=== PATIENT | male | born 1965 | race Caucasian/White ===

== ENCOUNTER 2019-08-21 13:52 | Inpatient (IN) | payer BC, SELFPAY ==
[~2019-08-21] VITALS: Ht 170.2 cm; Wt 86.2 kg
--- NOTE | 2019-08-21 14:24 | NUR ---
PT SITTING UP IN BED, AAOX4 WITH C/O GENERALIZED WEAKNESS, DIARRHEA, COUGH, LOSS OF APPETITE AND DARKENED URINE X 1 WEEK S/P 'WORKING OUT IN THE HEAT'. PT PLACED ON MONITOR. PT PLACED ON 2L O2 NC DUE TO LOW O2 SAT AND IS IN THE LOW 90'S, NO DISTRESS OR SOB NOTED AT THIS TIME. PT DENIES ANY FEVER OR N/V/C AT THIS TIME.
[2019-08-21 15:23] LABS: RED CELL DISTRIBUTION WIDTH 12.9 % (11.5-14.5)
[2019-08-21 15:33] LABS: PLATELET COUNT 113 x10^3mcL (130-400)
[2019-08-21 15:37] LABS: CALCIUM 8.1 mg/dL (8.5-10.1); CARBON DIOXIDE 27.2 mmol/L (21-32); CHLORIDE SERUM 97 mmol/L (98-107); GFR1 > 60 mL/min; GLUCOSE SERUM 299 mg/dL (74-106); POTASSIUM SERUM 3.9 mmol/L (3.5-5.1); SODIUM SERUM 132 mmol/L (136-145)
[2019-08-21 15:42] LABS: ALKALINE PHOSPHATASE 66 U/L (46-116); ALT/SGPT 21 U/L (16-63); AST/SGOT 38 U/L (15-37); BILIRUBIN TOTAL 0.72 mg/dL (0.20-1.00); LACTIC DEHYDROGENASE (LDH) 392 U/L (100-190)
[2019-08-21 15:49] LABS: ALBUMIN 2.9 g/dL (3.4-5.0)
[2019-08-21 16:11] LABS: MONOCYTE 7 % (0-7); SEGMENTED NEUTROPHILS 64 % (37-75)
[2019-08-21 16:13] LABS: rbc morphology (normal/abnorm) NORMAL (NORMAL)
[2019-08-21 16:14] LABS: PLATELET MORPHOLOGY PLATELETS DECREASED
[2019-08-21 16:18] LABS: microscopic required? YES; urine erythrocyte NEGATIVE (NEGATIVE)
--- NOTE | 2019-08-21 16:19 | NUR ---
PT STARTED TO FELL NAUSEATED AND DRY HEAVING SO DR OLMOS INFORMED. ZOFRAN GIVEN AND PT STATES HE FEELS BETTER.
--- NOTE | 2019-08-21 17:26 | NUR ---
PT BROUGHT DINNER TRAY AND SET UP FOR HIM. ALL NEEDS MET. WILL CONT TO MONITOR.
[2019-08-21 17:38] LABS: MAGNESIUM 2.4 mg/dL (1.8-2.4); PHOSPHOROUS 3.1 mg/dL (2.5-4.9)
[2019-08-21 17:39] LABS: CHOLESTEROL/HDL RATIO 4.9
--- NOTE | 2019-08-21 18:50 | NUR ---
PT WATCHING TV AND ATE DINNER. NAD.
--- NOTE | 2019-08-21 19:12 | NUR ---
GAVE REPORT TO DORIS
--- NOTE | 2019-08-21 20:00 | NUR ---
PATIENT AMBULATED TO THE BATHROOM. NO COMPLAINT AT THIS TIME.
[2019-08-21 21:19] LABS: AMPHETAMINE QUAL UR NONE DETECTED (See below)
--- NOTE | 2019-08-22 00:10 | NUR ---
MD NOTIFIED , PATIENT 'S SATURATION IS LOW ON 4 LITERS. . OXYEN INCREASED TO 6 LITERS VIA N/C PER DR PINEDA ( RESIDENT) VERBAL ORDER. SATURATION WENT UP TO 95 % 0N THE 6 LITERS.
--- NOTE | 2019-08-22 01:13 | NUR ---
PT REPORT CALLED TO PERCY CAMPOS TO ASSUME PT CARE.
[2019-08-22 02:01] VITALS: BP 140/89
--- NOTE | 2019-08-22 02:21 | NUR ---
RECEIVED PT FROM ER VIA [facility]RA ACCOMPANIED NURSE AND EMT, PT SEEN, ALERT AND ORIENTED, DENIES HEADACHE OR DIZZINESS, BREATHING EVEN AND UNLABORED, LUNG SOUNDS DIMINISHED BLL, MILD SOB ON EXERTION, NO RESP DISTRESS NOTED, ON O2 2L VIA NC, NO RESP DISTRESS NOTED, ON TELE#27 NSR, DENIES CHEST PAIN, SL TO RFA, PULSES PALPABLE, NO EDEMA NOTED, AMBULATORY WITH STEADY GAIT, ABD SOFT AND FLAT WITH ACTIVE BS, NO BM AT THIS TIME, DENIES ABD PAIN, VOIDING FREELY, NO DISTRESS NOTED, WILL KEEP TO MONITOR.
--- NOTE | 2019-08-22 06:20 | NUR ---
PT ASLEEP BUT EASILY AROUSABLE, SLEPT MOST OF NIGHT, BREATHING EVEN AND UNLABORED ON O2 2L VIA NC, NO RESP DISTRESS OR SOB NOTED, NO DISTRESS NOTED, WILL KEEP TO MONITOR.
--- NOTE | 2019-08-22 07:15 | NUR ---
RECEIVED FROM MEDICAL INSTRUCTOR NURSE, AOX4, TELE 27, NSR, PALPABLE PULSES, NO EDEMA, DIMINISHED BLF, +BS, VOIDS WITH NO DYSURIA, AMBULATORY, NO WEAKNESS, SKIN DRY AND INTACT, NO PAIN AT THIS TIME, IV INTACT TO RFA, NO REDNESS OR SWELLING, CALL LIGHT WITHIN REACH, BED AT LOWEST POSITION, SIDE RAILS UP.
[2019-08-22 07:57] VITALS: BP 103/71
--- NOTE | 2019-08-22 08:07 | NUR ---
MEDICATIONS GIVEN PER EMAR.
[2019-08-22 09:05] LABS: C REACTIVE PROTEIN 4.4 mg/dL (<=0.9); CALCIUM 8.3 mg/dL (8.5-10.1); CARBON DIOXIDE 30.1 mmol/L (21-32); CHLORIDE SERUM 99 mmol/L (98-107); CREATININE SERUM 0.9 mg/dL (0.7-1.3); GFR1 > 60 mL/min; GLUCOSE SERUM 219 mg/dL (74-106); MAGNESIUM 2.7 mg/dL (1.8-2.4); PHOSPHOROUS 3.5 mg/dL (2.5-4.9); POTASSIUM SERUM 4.8 mmol/L (3.5-5.1); SODIUM SERUM 137 mmol/L (136-145)
--- NOTE | 2019-08-22 09:22 | NUR ---
AZITHROMAX IVPB INFUSING WELL AT 250CC/HR. NO REDNESS OR SWELLING
[2019-08-22 10:44] LABS: PLATELET COUNT 126 x10^3mcL (130-400); RED CELL DISTRIBUTION WIDTH 13.1 % (11.5-14.5)
--- NOTE | 2019-08-22 10:46 | NUR ---
HEPARIN SQ GIVEN
[2019-08-22 11:36] VITALS: BP 100/60
--- NOTE | 2019-08-22 12:39 | NUR ---
CALLED RESIDENT'S PHONE REGARDING CA AND MG RESULTS. PER RESIDENT, IT'S OK . THAT'S FINE, KEEP IT IT IS.
[2019-08-22 14:19] LABS: MONOCYTE 15 % (0-7); SEGMENTED NEUTROPHILS 45 % (37-75); rbc morphology (normal/abnorm) NORMAL (NORMAL)
[2019-08-22 14:20] LABS: ATYPICAL LYMPH 2 %; PLATELET MORPHOLOGY LARGE PLATELET SEEN
[2019-08-22 15:44] VITALS: BP 104/70
--- NOTE | 2019-08-22 16:46 | NUR ---
ACCUCHECK DONE WITH CBG 275. REGULAR INSULIN 9 UNITS SQ GIVEN
--- NOTE | 2019-08-22 16:48 | NUR ---
SEEN AOX4, NOT IN DISTRESS, NO SOB, NO SUBJECTIVE COMPLAINTS. NEEDS MET
--- NOTE | 2019-08-22 19:41 | NUR ---
PT SEEN, ALERT AND ORIENTED, DENIES HEADACHE OR DIZZINESS, BREATHING EVEN AND UNLABORED, LUNG SOUNDS DIMINISHED BLL, MILD SOB ON EXERTION, NO RESP DISTRESS NOTED, ON O2 2L VIA NC, NO RESP DISTRESS NOTED, ON TELE#27 NSR, DENIES CHEST PAIN, SL TO RFA, PULSES PALPABLE, NO EDEMA NOTED, AMBULATORY WITH STEADY GAIT, ABD SOFT AND FLAT WITH ACTIVE BS, NO BM AT THIS TIME, DIARRHEA THROUGHOUT THE DAY, DENIES ABD PAIN, VOIDING FREELY, NO DISTRESS NOTED, WILL KEEP TO MONITOR.
[2019-08-22 20:19] VITALS: BP 108/70
[2019-08-23 05:27] VITALS: BP 100/64
[2019-08-23 06:00] VITALS: BP 115/63
--- NOTE | 2019-08-23 06:16 | NUR ---
PT THIS MORNING SPO2 ONLY SATTING AT 83-86% ON O2 2L, INCREASED TO 5L PT STILL SATTING AROUND 85%, REPLACED PT TO OXYMIXER 8L AND SATTING WENT UP TO 86-87% THEN INCREASED TO 12L BUT STILL WITH NO IMPROVEMENT, PLACED PT ON NON-REBREATHER 15L AND SPO2 CAN MAINTAIN ABOVE 90%, ENCOURAGE PT TO PRONE HIMSELF BUT PT UNABLE TO TOLERATE ON PRONE POSITION AND NOTED PT STARTED TO COUGH A LOT WITH SHALLOW BREATHING, PT BACK TO SUPINE POSITION, DR OCHOA AND DR PINEDA MADE AWARE OF PT WITH CONDITION CHANGE, NO CONTINUE PULSE OX WIRE AVAILABE AT THIS TIME, RT PROTOCOL ORDERED, PT STATED THAT HE IS FINE AT THIS TIME.
--- NOTE | 2019-08-23 07:00 | NUR ---
RECEIVED PT FROM BOBBIN DISKER RN. AOX4 ABLE TO MAKE NEEDS KNOWN, DENIES VILLASENOR/DIZZINESS. TELE 27 SR, ECHO PENDING. DIMINISHED LUNG SOUNDS, ON 15L NRB MASK O2 SAT 92%, ENCOURAGE PT TO SELF-PRONE, DENIES SOB, C/O COUGH EARLIER BUT NONE AT THE MOMENT, RESP E/U. ABDOMEN SOFT/ROUND, NONTENDER, NONDISTENDED, DENIES N/V, C/O PREVIOUS BM LOOSE. AMBULATES PER BRP. ENCOURAGED TO USE URINAL AT BEDSIDE. IV TO RFA PATENT, INFUSING ABX, CDI. CALL LIGHT IN REACH, WILL CONTINUE TO MONITOR.
[2019-08-23 07:48] VITALS: BP 108/70
[2019-08-23 07:59] LABS: BASOPHIL % 0.2 % (0-2); PLATELET COUNT 169 x10^3mcL (130-400); RED CELL DISTRIBUTION WIDTH 12.8 % (11.5-14.5)
--- NOTE | 2019-08-23 08:00 | NUR ---
PT FOUND SITTING UP IN BED WITH NRB MASK OFF, PT STATED HE TOOK IT OFF TO EAT. REMINDED PT THAT HE NEEDS TO KEEP MASK ON, DENIES SOB OR TROUBLE BREATHING, PT NOW RESTING IN BED, SUPINE, BACK ON 15L NRB MASK. WILL CONTINUE TO MONITOR.
--- NOTE | 2019-08-23 08:07 | NUR ---
ECHOCARDIOGRAM PENDING-COVID RESULTS PENDING
[2019-08-23 08:18] LABS: C REACTIVE PROTEIN 2.4 mg/dL (<=0.9); CALCIUM 8.3 mg/dL (8.5-10.1); CARBON DIOXIDE 28.1 mmol/L (21-32); CHLORIDE SERUM 102 mmol/L (98-107); CREATININE SERUM 0.8 mg/dL (0.7-1.3); GFR1 > 60 mL/min; GLUCOSE SERUM 88 mg/dL (74-106); MAGNESIUM 2.4 mg/dL (1.8-2.4); PHOSPHOROUS 3.5 mg/dL (2.5-4.9); POTASSIUM SERUM 3.6 mmol/L (3.5-5.1); SODIUM SERUM 140 mmol/L (136-145)
[2019-08-23 11:26] VITALS: BP 103/67
[2019-08-23 15:53] VITALS: BP 106/68
--- NOTE | 2019-08-23 19:34 | NUR ---
PT SEEN, ALERT AND ORIENTED, DENIES HEADACHE OR DIZZINESS, BREATHING EVEN AND UNLABORED, LUNG SOUNDS DIMINISHED, SOB ON EXERTION, ON AND OFF COUGH, ON NON REBREATHER 15L, ON AND OFF COUGH, NO RESP DISTRESS NOTED, ON TELE#27 NSR, DENIES CHEST PAIN, SL TO LFA, PULSES PALPABLE, NO EDEMA NOTED, AMBULATORY WITH STEADY GAIT, ABD SOFT AND FLAT WITH ACTIVE BS, NO BM AT THIS TIME, DIARRHEA THROUGHOUT THE DAY, DENIES ABD PAIN, VOIDING FREELY, NO DISTRESS NOTED, WILL KEEP TO MONITOR.
[2019-08-23 20:29] VITALS: BP 102/66
[2019-08-24 05:14] VITALS: BP 94/58
--- NOTE | 2019-08-24 05:44 | NUR ---
PT AWAKE AND RESTING IN BED, SLEPT ON AND OFF WHOLE NIGHT, ON AND OFF COUGH, SOB ON EXERTION, PT UNABLE TO TOLERATE ON PRONE POSITION, ON NON-REBREATHER 15L, DE-SATS AT TIMES, MORNING BLOOD SUGAR:117 MG/DL WITH NO RISS, NO DISTRESS NOTED, WILL KEEP TO MONITOR.
--- NOTE | 2019-08-24 06:39 | NUR ---
DR SMITH MADE AWARE OF PT'S ABG RESULT THIS MORNING, PT'S PO2:49 WITH NON-REBREATHER 15L.
[2019-08-24 07:19] LABS: BASOPHIL % 0.2 % (0-2); PLATELET COUNT 190 x10^3mcL (130-400); RED CELL DISTRIBUTION WIDTH 12.8 % (11.5-14.5)
[2019-08-24 07:48] LABS: C REACTIVE PROTEIN 3.6 mg/dL (<=0.9); CARBON DIOXIDE 27.7 mmol/L (21-32); CHLORIDE SERUM 103 mmol/L (98-107); CREATININE SERUM 0.7 mg/dL (0.7-1.3); GFR1 > 60 mL/min; GLUCOSE SERUM 94 mg/dL (74-106); MAGNESIUM 2.5 mg/dL (1.8-2.4); PHOSPHOROUS 3.3 mg/dL (2.5-4.9); POTASSIUM SERUM 3.6 mmol/L (3.5-5.1); SODIUM SERUM 139 mmol/L (136-145)
--- NOTE | 2019-08-24 07:50 | NUR ---
RECEIVED PT IN A/A/OX4 DENIES VILLASENOR. RESP EVEN AND SLIGHTLY LABORED BREATHING WITH DIMINISHED BS BILAT. ON NRB AT 15L/MIN VIA NC WITH RT PROTOCOL. PT NOTED WITH LOW O2 SATS. WILL CONTACT RT. NSR/ST ON TELE. NO EDEMA NOTED WITH IV SL TO LFA. ABD SOFT, NONTENDER WITH ACTIVE BS X4. DENIES ANY N/V AT THIS TIME. DROPLET PRECAUTIONS MAINTAINED. PENDING CVD-19 RESULT.
[2019-08-24 08:43] LABS: CALCIUM 8.1 mg/dL (8.5-10.1)
--- NOTE | 2019-08-24 08:45 | NUR ---
SPOKE WITH RT TO EVAL PT FOR POSS ADDITION OF OXYMIZER WITH NRBH ON TOP TO HELP WITH LOW SATURATIONS. PT REMINDED TO KEEP PRONING TOLERATED AND TO TAKE SLOW DEEP BREATHS. CALL LIGHT IN REACH NEEDS ATTENDED TO.
[2019-08-24 09:27] VITALS: BP 111/70
[2019-08-24 13:05] VITALS: BP 98/61
--- NOTE | 2019-08-24 14:00 | NUR ---
SPOKE WITH DR. NARANJO REGARDING PT'S CONDITION. PER CONCERN ABOUT OXYGENATION. PER MD HAD PT LAY PRONE. CONT TO MONITOR.
[2019-08-24 17:21] VITALS: BP 101/69
--- NOTE | 2019-08-24 18:48 | NUR ---
PT RESTING AT THIS TIME. REMAINS ON O2 VIA NRB AT 15L AND OXYMIZER AT 12L, PT'S O2 SAT HAS BEEN FLUCTUATING FROM 88-92%. ENCOURAGE PRONING TOLERATED. PT DENIES ANY PAIN/DISCOMFORT AT THIS TIME. CALL LIGHT IN REACH NEEDS ATTENDED TO.
--- NOTE | 2019-08-24 20:00 | NUR ---
PT A/A/O X3. DENIES DIZZINESS AND HEADACHE. BREATH SOUNDS DIMINISHED. BREATHING EVEN AND UNLABORED ON 15L O2 NON REBREATHER MASK AND 14L O2 OXYMIZER, SPO2 90%. DENIES CHEST PAIN AND PRESSURE. BOWEL SOUNDS ACTIVE. NO C/O N/V AND ABD PAIN. IV SALINE LOCK INTACT ON THE LEFT FOREARM. MADE PT COMFORTABLE. PLACED CALL LIGHT WITH IN REACH. WILL CONTINUE TO MONITOR.
[2019-08-24 21:25] VITALS: BP 105/66
--- NOTE | 2019-08-25 06:38 | NUR ---
PT QUIET AND RESTING. OXYMIZER INCREASED FROM 14L TO 15L. NON REBREATHER MASK 15L, SPO2 89%. PT DENIES SOB AND RESPIRATORY DISTRESS. INSTRUCTED THE PT TO LAY ON HIS SIDE OR ON HIS STOMACH. PT VERBALIZED UNDERSTADING. MADE PT COMFORTABLE. WILL ENDORSE TO THE AM NURSE ACCORDINGLY.
[2019-08-25 06:39] VITALS: BP 112/69
--- NOTE | 2019-08-25 06:43 | NUR ---
PT SPO2 90% ON 15L OZYMIZER AND 15L NON REBREATHER MASK.
--- NOTE | 2019-08-25 06:51 | NUR ---
PT SPO2 WOULD GO DOWN TO 85% AND SOMETIMES COME BACK TO 91% ON OXYMIZER 15L AND 15L NON REBREATHER MASK. DR. SMITH AWARE. WILL ENDORSE TO THE AM NURSE ACCORDINGLY.
--- NOTE | 2019-08-25 07:40 | NUR ---
RECEIVED PT IN BED A/A/OX4 DENIES VILLASENOR. RESP EVEN AND UNLABORED WITH DIMINISHED BS BILAT. ON O2 VIA NRB AT 15L AND OXYMIZER INCREASED TO 15L OVERNIGHT. PT ENCOURAGES PRONING AND DOES FOLLOW DIRRECTIONS. O2 SAT 88-92%. WORSENING WHILE EATING OR ACTIVITY. NO EDEMA NOTED WITH IV SL TO LFA PATENT. VOIDING FREELY USING URINAL. MAINTAINED DROPLET PRECAUTIONS. PUI/CVD WITH RESULTS PENDING. CALL LIGHT IN REACH NEEDS ATTENDED TO.
[2019-08-25 08:20] VITALS: BP 106/74
[2019-08-25 11:11] LABS: CALCIUM 8.5 mg/dL (8.5-10.1); CARBON DIOXIDE 28.1 mmol/L (21-32); CHLORIDE SERUM 101 mmol/L (98-107); CREATININE SERUM 0.9 mg/dL (0.7-1.3); GFR1 > 60 mL/min; GLUCOSE SERUM 260 mg/dL (74-106); MAGNESIUM 2.5 mg/dL (1.8-2.4); PHOSPHOROUS 2.6 mg/dL (2.5-4.9); POTASSIUM SERUM 4.4 mmol/L (3.5-5.1); SODIUM SERUM 136 mmol/L (136-145)
--- NOTE | 2019-08-25 11:15 | NUR ---
CALLED PT'S FAMILY REQUESTED BY PT AND UPDATED ON CONDITION AND POC. CONT TO MONITOR.
[2019-08-25 11:35] LABS: PLATELET COUNT 234 x10^3mcL (130-400); RED CELL DISTRIBUTION WIDTH 12.8 % (11.5-14.5)
[2019-08-25 11:39] LABS: BASOPHIL % 0 % (0-2)
--- NOTE | 2019-08-25 12:00 | NUR ---
CALLED TO LAB TO F/U ON CVD TEST PENDING LAB FOLLOWED UP WITH [facility] AND SPECIMEN COULD NOT BE FOUND OR TRACKED. LAB REQUESTED NEW SWAB. ORDER OBTAINED AND PT ALLOWED TO BE RESWAB. SPECIMEN SENT TO LAB BEFORE 1200 TO ENSURE MANUFACTURING SR ENGINEER TODAY. PT MADE AWARE OF SITUATION, AND DR. NARANJO, AND DR. LOYOLA AWARE OF SITUATION. WILL CONT TO MONITOR.
[2019-08-25 13:00] VITALS: BP 114/71
--- NOTE | 2019-08-25 13:38 | NUR ---
Initial Nutrition Assessment: [address] YULIANA PETERSON 54M HR Nursing trigger: N/V/D > 3 days, Poor PO intake > 3 days Dx: VILLASENOR, cough, body ache, diarrhea, poor appetite, bilateral PNA, hypoxia, r/o COVID-19 PMHx: DM non-compliant PSHx: none noted Labs: (08/23) mg 2.5H, (08/20) AST 38H Meds: Tylenol, Ventolin, Zithromax, Cepacol lozenge, Rocephin, decadron, D50%, D5%, Colace, Hunters, Lantus, Humulin, Zofran Diet: [facility] diet PO intake since admission: 30-100% x 9 meals with average PO intake of 74%. Ht: 170.18cm/67in Wt: 86.183kg/190lbs BMI: 29.8 Bed scale: unknown IBW: 67.27kg/148lbs %IBW: 128.11% ABW: 72kg UBW: 190lbs per pt Age: 54 Food Allergies: NKFA per pt Edema: none noted Last BM: 08/21 Skin: skin intact Trevon: 20 Per H and P (08/20), Patient is 54-year-old male who came to ED by himself from work. Patient lives in [place] but works in [place]. He has a history of DM, but he is not compliant with meds. He comes in for shortness of breath associated with generalized weakness, cough and loose stools. His symptoms started 3 days ago and have progressively gotten worse. He was at work when he felt weak and decided to come to the ER. His cough is dry. Today he had 1 episode of loose stools in the morning. 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 He works outdoors from 11 am till 6-7 pm. He denies any fever, nausea, vomit, constipation or recent travel. Pt was admitted with dx: Acute respiratory failure and viral PNA d/ possible COVID vs. CAP, Possible Sepsis, DMOOC, Hypocalcemia, DVT RD Note (08/24) Pt was in isolation d/t possible COVID. RDN was able to contact pt with phone. Per pt, he had good appetite, and pt denied GI distress, chewing/swallowing difficulty, and recent wt changes. Pt reported taking MVI and protein powder at home, and he used to work out a lot. Per progress note (08/24) pt on day 4 of Decadron, azithromycin and Rocephin, COVID result still pending. Pt had average PO intake of 74% since admission. Diet provided approximately 1266kcal and 76g protein meeting 59% of estimated kcal needs and 88% of estimated protein needs. Problem with: N/V/D/C: No, only coughing per pt Problems with: Chewing: Swallowing: none per pt Current appetite: good per pt Recent wt change: no per pt %wt change: no per pt Height: 5'7" Vitamin/Supplement use: MVI and protein powder Special diet at home: no per pt Physical activity: pt stated that he used to workout Nutrition education given (specify specific nutrition education and handout given): Encouraged pt to avoid food with high added sugar and substitute refine grain with whole grain food. Also advised pt to count his carbohydrate serving and maintain a consistent level of carbohydrate intake. Additionally, recommended pt to continue with exercise to aid blood sugar control. Written education "Type 2 Diabetes Nutrition Therapy" and "Diabetes Label Reading Tips" were provided to pt via pt's RN. Food-drug interactions? Education given? n/a Estimated Nutritional Needs Based on adjusted ideal body weight (72 kg) Energy: 9901-6486 kcal/day (30-35 kcal/kg for sepsis) Protein: 86-108 g/day (1.2-1.5 g/kg for sepsis) Fluid: 0303-0814 mL/day (1 mL/kcal) Nutrition Diagnosis: 1. Inadequate energy intake r/t suboptimal PO intake a/e/b pt PO intake meeting 59% of estimated kcal needs. 2. Impaired nutrition utilization r/t endocrine dysfunction a/e/b pt admitted with dx of DMOOC and PMHx of DM. Intervention 1. Recommend continue CCHO diet 2. Recommend glucerna BID to aid PO intake. It will provide additional 440kcal and 20g protein. Monitor/Evaluate Goal: PO intake at least 75% of estimated needs Monitor: PO intake, Labs, GI function, ONS intake, Body weight F/U in 3-5 days as moderate risk 08/27-
--- NOTE | 2019-08-25 13:38 | NUR ---
1. Recommend continue [facility] diet 2. Recommend glucerna BID to aid PO intake. It will provide additional 440kcal and 20g protein.
--- NOTE | 2019-08-25 15:00 | NUR ---
PT RESTING AT THIS TIME. DENIES ANY DISCOMFORT. CALL LIGHT IN REACH NEEDS ATTENDED TO.
[2019-08-25 16:56] VITALS: BP 93/57
--- NOTE | 2019-08-25 17:54 | NUR ---
PT RESTING AT THIS TIME. DENIES ANY DISCOMFORT. REMAINS ON OXYMIZER AT 15L AND NRB AT 15L SATING 88-92%. PT DESATS WHILE EATING AND FROM NRB NOT FITTING PROPERLY OVER OXYMIZER. PT PRONES FREQUENTLY AND TURNS ON SIDE. PT HAD LARGE BM TODAY WITH ASSISTANCE TO BSC AND TOLERATED WELL RECOVERED TO 93% IN LESS THAN 5 MIN. CALL LIGHT IN REACH NEEDS ATTENDED TO.
--- NOTE | 2019-08-25 20:00 | NUR ---
PT A/A/O X4. DENIES DIZZINESS AND HEADACHE. BREATH SOUNDS DIMINISHED CHIKI LUNGS. BREATHING EVEN AND UNLABORED ON 15L OXYMIZER AND 15L NON REBREATHER MASK, SPO2 89%. NO C/O RESPIRATORY DISTRESS AND SOB THUS FAR. DENIES CHEST PAIN AND PRESSURE. BOWEL SOUNDS ACTIVE. NO C/O N/V AND ABD PAIN. IV SALINE LOCK NOTED ON THE LEFT FOREARM. MADE PT COMFORTABLE. PLACED CALL LIGHT WITH IN REACH. WILL CONTINUE TO MONITOR.
[2019-08-25 21:28] VITALS: BP 108/73
[2019-08-26 06:01] VITALS: BP 91/59
[2019-08-26 06:02] VITALS: BP 109/68
--- NOTE | 2019-08-26 06:36 | NUR ---
PT QUIET AND RESTING. NO C/O SOB AND RESPIRATORY DISTRESS THUS FAR. SPO2 88%-91%. MADE PT COMFORTABLE. WILL ENDORSE TO THE AM NURSE ACCORDINGLY.
[2019-08-26 07:09] LABS: BASOPHIL % 0.2 % (0-2); PLATELET COUNT 270 x10^3mcL (130-400); RED CELL DISTRIBUTION WIDTH 12.9 % (11.5-14.5)
[2019-08-26 07:51] LABS: CALCIUM 8.5 mg/dL (8.5-10.1); CARBON DIOXIDE 29.1 mmol/L (21-32); CHLORIDE SERUM 103 mmol/L (98-107); CREATININE SERUM 0.9 mg/dL (0.7-1.3); GFR1 > 60 mL/min; GLUCOSE SERUM 74 mg/dL (74-106); MAGNESIUM 2.5 mg/dL (1.8-2.4); PHOSPHOROUS 3.5 mg/dL (2.5-4.9); POTASSIUM SERUM 4.1 mmol/L (3.5-5.1); SODIUM SERUM 139 mmol/L (136-145)
[2019-08-26 08:51] VITALS: BP 106/71
--- NOTE | 2019-08-26 09:00 | NUR ---
RECEIVED PT FROM PM NURSE. PT AWAKE AND RESTING COMFORTABLY IN BED AT THIS TIME. NO FACIAL DISTRESS OR SOB NOTED. PT IS A/OX4. LUNG SOUNDS DIMINISHED BILAT. BREATHING E/U ON BOTH NRB 15L AND OXYMIZER 15L. ENCOURAGED PT TO GET INTO A PRONE POSITION. TELE #27. SR. DENIES CP/PRESSURE. PULSES EVEN AND PALPABLE. NO EDEMA NOTED. ACTIVE BS X4. ABD SOFT AND ROUND. LBM 08/24/19. DENIES N/V/D. VOIDS FREELY USING URINAL BY BEDSIDE. AMBULATORY. SKIN INTACT. DENIES PAIN AT THIS TIME. IV ON LFA. SL. INTACT AND PATENT. FLUSHES WITH NO DIFFICULTY. SAFETY PRECAUTIONS: DROPLET AND CONTACT OBSERVED AT ALL TIMES. BED AT THE LOWEST POSITION. CALL LIGHT WITHIN REACH. WILL CONTINUE TO MONITOR.
[2019-08-26 12:14] VITALS: BP 102/69
--- NOTE | 2019-08-26 12:49 | NUR ---
DR. SMITH MADE AWARE OF THE REMDESIVIR ORDER THAT WAS INPUTTED LAST NIGHT. SHE STATED THAT SHE WILL INFORM HER ATTENDING DOCTOR.
[2019-08-26 16:31] LABS: BILIRUBIN DIRECT 0.16 mg/dL (0.0-0.2); BILIRUBIN TOTAL 0.66 mg/dL (0.20-1.00); TOTAL PROTEIN, SERUM 6.9 g/dL (6.4-8.2)
[2019-08-26 16:39] LABS: ALBUMIN 2.5 g/dL (3.4-5.0)
[2019-08-26 16:54] VITALS: BP 110/74
--- NOTE | 2019-08-26 19:26 | NUR ---
CARE ENDORSED TO PM NURSE FOR CONTINUTIY OF CARE. ALL QUESTIONS/CONCERNS ANSWERED.
--- NOTE | 2019-08-26 19:45 | NUR ---
RECEIVED REPORT FROM KAMI CAMPOS. PT IS AAOX4 AND DENIES VILLASENOR/DIZZINESS. PT ON TELE #27, ST WITH HR 103. PT DENIES CP/PRESSURE. PT PULSES PALPABLE AND CAP REFILL <3 SEC. PT LUNG SOUNDS DIMINISHED ON 15L NRB AND 15L OXYMIZER. PT ON CONTINUOUS PULSE OX. PT SAO2 RANGING FROM 88-90%. PT NONPRODUCTIVE COUGH NOTED. PT C/O SOB UPON EXERTION. PT ABD SOFT/ROUND WITH ACTIVE BS X4. PT DENIES N/V/C/D. PT VOIDS FREELY VIA URINAL. PT IS AMBULATORY. PT SKIN INTACT. PT DENIES S/S OF PAIN OR DISCOMFORT AT THIS TIME. PT IV TO LFA PATENT/INTACT. NO S/S OF REDNESS, PAIN, OR SWELLING NOTED. ALL NEEDS MET AT THIS TIME. CALL LIGHT WITHIN REACH. BED IN LOWEST POSITION. SIDE RAILS X2 UP. DROPLET+CONTACT PRECAUTIONS MAINTAINED. WILL CONTINUE TO MONITOR.
--- NOTE | 2019-08-26 19:50 | NUR ---
PT SAO2 DECREASED TO THE 78-80%. MADE RT AWARE FOR A BREATHING TREATMENT. PER RT, ONCE REPORT IS GIVEN, RT WILL BE AT BEDSIDE. WENT IN TO SEE PT. PER PT, HE WAS TRYING TO REPOSITION THE BED BY REACHING THE BED CONTROLS AT THE FOOT OF HIS BED. GAVE AND ORIENTED PT TO BED CONTROL PAD THAT WAS UNDERNEATH THE SIDE RAIL. EDUCATED PT THAT HE NEEDS TO MAKE SURE THAT THE NONREBREATHER MASK NEED TO STAY ON TOP OF HIS OXYMIZER. PT COUGH NOTED AT THIS TIME. ALL NEEDS MET. WILL CONTINUE TO MONITOR.
--- NOTE | 2019-08-26 20:00 | NUR ---
RT AT BEDSIDE TO GIVE BREATHING TX AT THIS TIME.
[2019-08-26 21:12] VITALS: BP 108/61
--- NOTE | 2019-08-26 22:25 | NUR ---
REGARDING REMDESIVIR IV, DR. NARANJO WHO ROUNDED FOR DR. PATEL THIS MORNING APPROVED THE MEDICATION. HOWEVER, SPOKE WITH PHARMACY AND PER PHARMACY, THEY CANNOT VERIFY THE MEDICATION UNLESS DR. PATEL OR DR. DUPREE ARE THE ONES WHO APPROVE THE MEDICATION. WILL MAKE CHARGE NURSE AWARE.
--- NOTE | 2019-08-27 06:00 | NUR ---
PT RESTED COMFORTABLY IN INTERVALS DURING THE NIGHT. PT IS NONCOMPLIANT WITH WEARING BOTH THE NRB AND OXYMIZER AT TIMES. EDUCATED PT THAT HE NEEDS TO WEAR BOTH EVEN IT IS UNCOMFORTABLE. PT VERBALLY SAID HE UNDERSTOOD. COMFORT AND SAFETY MEASURES MAINTAINED. ALL QUESTIONS AND CONCERNS ADDRESSED. CALL LIGHT WITHIN REACH. BED IN LOWEST POSITION. SIDE RAILS X2 UP. WILL ENDORSE TO DAY SHIFT NURSE.
[2019-08-27 06:21] VITALS: BP 107/69
--- NOTE | 2019-08-27 07:17 | NUR ---
ENDORSED CARE TO KAMI RN. ALL QUESTIONS AND CONCERNS ANSWERED.
--- NOTE | 2019-08-27 07:45 | NUR ---
RECEIVED PT FROM PM ANDRES OLIVAREZ. PT IS AWAKE AND RESTING COMFORTABLY IN BED AT THIS TIME. NO FACIAL DISTRESS OR SOB NOTED. PT IS A/OX4. DENIES VILLASENOR OR DIZZINESS. LUNG SOUNDS DIMINISHED. BREATHING E/U ON 15L NRB AND 15L OXYMIZER. O2SAT RANGING FROM 88-95% TELE #27. NSR. PULSES EVEN AND PALPABLE. NO EDEMA NOTED. ACTIVE BSX4. ABD. SOFT AND ROUND. DENIES N/V/D. LBM 08/26/19. VOIDS FREELY IN URINAL BY BEDSIDE. AMBULATORY. SKIN INTACT. NO C/O PAIN AT THIS TIME. STILL C/O SOB UPON EXERTION. IV ON LFA. SL. INTACT AND PATENT. FLUSHES WITH NO DIFFICULTY. DROPLET+CONTACT PRECAUTIONS MAINTAINED. BED AT LOWEST POSITION. CALL LIGHT WITHIN REACH. WILL CONTINUE TO MONITOR.
[2019-08-27 09:51] VITALS: BP 108/75
[2019-08-27 17:38] VITALS: BP 107/79
--- NOTE | 2019-08-27 19:10 | NUR ---
PT RECEIVED FROM AM NURSE. PT A/O X4, ABLE TO MAKE NEEDS KNOWN. TELE #27, DENIES ANY CP/PRESSURE. PULSES PALPABLE, NO EDEMA PRESENT. BREATHING IS EVEN AND UNLABORED ON 15L NRB AND 15L OXYMIZER, PT DENIES ANY SOB, NO RESP DISTRESS NOTED. ABD SOFT AND NONDISTENDED, DENIES ANY N/V. VOIDS FREELY, URINAL AT BEDSIDE. AMBULATORY W/ STEADY GAIT. SKIN IS WARM AND DRY, INTACT. PT DENIES HAVING ANY PAIN AT THIS TIME. IV TO LFA, INTACT. DOUBLE LUMEN LOLA PICC LINE IN PLACE, PORTS PATENT AND INTACT, SITES WNL. PT IS COVID+, W/ DROPLET AND CONTACT PRECAUTIONS IN PLACE. NO ACUTE DISTRESS NOTED. BED IN LOWEST SETTING, SIDE RAILS UP X2, CALL LIGHT WITHIN REACH. WILL CONT TO MONITOR.
--- NOTE | 2019-08-27 19:15 | NUR ---
CARE ENDORSED TO PM NURSE FOR CONTINUITY OF CARE. ALL QUESTIONS/CONCERNS ANSWERED.
[2019-08-27 21:43] VITALS: BP 98/61
--- NOTE | 2019-08-28 02:07 | NUR ---
PT C/O SORE THROAT, PRN CEPACOL GIVEN PER EMAR. NO ACUTE DISTRESS NOTED. WILL CONT TO MONITOR.
[2019-08-28 06:08] VITALS: BP 103/62
--- NOTE | 2019-08-28 06:26 | NUR ---
PT SLEPT WELL THROUGHOUT THE EVENING. BREATHING IS EVEN AND UNLABORED ON 15L NRB AND 15L OXYMIZER, CONT PULSE OX-98%, NO RESP DISTRESS OBSERVED. PT DENIES HAVING ANY PAIN AT THIS TIME. IV TO LFA INTACT. LOLA PICC LINE IN PLACE, PORTS PATENT AND INTACT. NO ACUTE CHANGES ENCOUNTERED DURING SHIFT. ALL NEEDS MET AND ANTICIPATED. CALL LIGHT WITHIN REACH. WILL ENDORSE CARE TO AM NURSE.
--- NOTE | 2019-08-28 07:00 | NUR ---
RECEIVED REPORT FRO NIGHT RN Pt DENIES ANY SOB AT THIS TIME REMAINS ON 15L NRM AND 15L OXYMIZER LUNGS DIMINSHED BILAT. ON TELE 27 DENIES ANY CHEST PAIN OR PRESSURE. IV ON LFA PATENT AND INTACT NO REDNESS OR EDEMA. ALL NEEDS ATTENDED TO. SAFETY PRECAUTIONS IN PLACE. WILL CONTINUE TO MONITOR.
[2019-08-28 08:00] VITALS: BP 105/71
[2019-08-28 08:24] LABS: BASOPHIL % 0.3 % (0-2); PLATELET COUNT 277 x10^3mcL (130-400); RED CELL DISTRIBUTION WIDTH 13.1 % (11.5-14.5)
[2019-08-28 08:37] LABS: CALCIUM 8.6 mg/dL (8.5-10.1); CARBON DIOXIDE 30.6 mmol/L (21-32); CHLORIDE SERUM 102 mmol/L (98-107); CREATININE SERUM 0.8 mg/dL (0.7-1.3); GFR1 > 60 mL/min; GLUCOSE SERUM 82 mg/dL (74-106); MAGNESIUM 2.3 mg/dL (1.8-2.4); PHOSPHOROUS 3.4 mg/dL (2.5-4.9); POTASSIUM SERUM 3.8 mmol/L (3.5-5.1); SODIUM SERUM 139 mmol/L (136-145)
--- NOTE | 2019-08-28 09:30 | NUR ---
Elvis rounding at bedside updating Pt on POC
--- NOTE | 2019-08-28 11:30 | NUR ---
UPDATED ON Pt STATUS ALL QUESTIONS AND CONCERNS ADDRESSED . JERI HELPED WITH TRANSLATION
--- NOTE | 2019-08-28 11:45 | NUR ---
Pt LYING IN BED WITH EYES CLOSED CHEST RISE EQUAL AND UNLABORED. Pt REMAINS ON NRB 15L AND OXYMIZER 15L 93% CONTINUOUS PULSE OX. Pt DENIES ANY SOB AT THIS TIME ONLY UPON EXCERTION. INSULIN COVERAGE GIVEN. ALL NEEDS ATTENDED TO AT THIS TIME. BED IN LOWEST POSITION CALL LIGHT WITHIN REACH. WILL CONTINUE TO MONITOR.
[2019-08-28 12:18] LABS: ALBUMIN 2.2 g/dL (3.4-5.0); BILIRUBIN DIRECT 0.16 mg/dL (0.0-0.2); BILIRUBIN TOTAL 0.6 mg/dL (0.20-1.00); TOTAL PROTEIN, SERUM 6.7 g/dL (6.4-8.2)
[2019-08-28 12:33] VITALS: BP 111/68
--- NOTE | 2019-08-28 14:02 | NUR ---
Pt LYING IN BED WITH EYES CLOSED NMO S/S OF ANY RESPIRATORY DISTRESS. ALL NEEDS ATTENDED TO. SAFETY PRECAUTIONS IN PLACE. WILL CONTINUE TO MONITOR.
[2019-08-28 17:07] VITALS: BP 107/72
--- NOTE | 2019-08-28 17:46 | NUR ---
Pt LYING IN BED DENIES ANY SOB HUNG 2ND BAG OF REMDESEVIR Pt TOLERATING NO ADVERSE REACTIONS NOTED. Pt DENIES ANY SOB REMAINS ON 15L NRB AND 15L OXYMIZER. ALL NEEDS ATTENDED TO. WILL CONTINUE TO MONITOR.
--- NOTE | 2019-08-28 18:54 | NUR ---
ADMINISTERED CEPACOL PER Pt REQUEST FOR SOAR THROAT. Pt REMAINED ON 15L OXYMIZER AND 15L NRB MASK CHEST RISE EQUAL AND UNLABORED. Pt SAIDA SY SOB STATED "I AM FEELING BETTER LIL BY LIL" ALL NEEDS ATTENDED TO. IV AND PICC LINE C/D/I NO REDNESS OR EDEMA. TELE MONITOR ON. WILL ENDORSE CARE TO NIGHT RN
--- NOTE | 2019-08-28 19:20 | NUR ---
RECIEVED PT RESTING IN BED WITH NO ACUTE DISTRESS NOTED AT THIS TIME, ASSESSMENT PERFORMED AT THIS TIME, (SEE SHIFT REASSESSMENT), PT IS A/OX4 NO COMPLAINTS OF VILLASENOR OR DIZZINESS AT THIS TIME, PT SPEAKS CLEAR ABLE TO MAKE NEEDS KNOWN, PT DENIES SOB AT THIS TIME, ON 15 L OXYMIZER AND 15L NONREBREATHER. LUNG SOUNDS DIMINISHED, ALL PT NEEDS ATTENDED TO AT THIS TIME, SAFETY PRECAUTIONS IN PLACE WILL CONITNUE TO MONITOR.
[2019-08-28 22:43] VITALS: BP 101/69
--- NOTE | 2019-08-29 00:10 | NUR ---
PT RESTING IN BED WITH NO ACUTE DISTRESS NOTED AT THIS TIME, PT DENIES PAIN OR SOB, RESPIRATIONS EVEN AND UNLABORED, ALL PT NEEDS ATTENDED TO AT THIS TIME, SAFETY PRECAUTIONS IN PLACE WILL CONTINUE TO MONITOR.
[2019-08-29 05:34] VITALS: BP 96/63
--- NOTE | 2019-08-29 06:46 | NUR ---
PT RESTED COMFORTABLY IN BED WITH NO ACUTE DISTRESS NOTED AT THIS TIME, PT DENIED PAIN THROUGHOUT THE NIGHT, PT DESATURATED TWICE DURING THE NIGHT, BUT NRB AT 10L AND GUIDED BREATHING ALIEVIATED PT DIFFICULTIES, PT IS STABLE AND ALL NEEDS ATTENDED TO THROUGH NIGHT, SAFETY PRECAUTIONS IN PLACE, WILL CONTINUE TO MONITOR AND ENDORSE CARE
--- NOTE | 2019-08-29 06:50 | NUR ---
PT RESTED COMFORTABLY THROUGH THE NIGHT WITH NO ACUTE DISTRESS NOTED DURING CARE, PT REMAINED ON 15L OXYMIZER AND 15 L NRB THROUGH NIGHT WHEN ATTEMPTING TO WEAN PT DESATURATED, PT OTHERWISE REMAINS STABLE, ALL PT NEEDS ATTENDED TO THROUGH SHIFT, SAFETY PRECAUTIONS IN PLACE WILL CONTINUE TO MONITOR AND ENDORSE CARE
--- NOTE | 2019-08-29 07:00 | NUR ---
RECEIVED REPORT FROM ALEXANDRO GILBERT RN Pt LYING IN BED A&O X4 RECEIVED ON 15L NRB AND 15L OXYMIZER Pt DENIES ANY SOB AT THIS TIME. STATED " MY NOSE IS REALLY STUFFY IT WAS HARD TO SLEEP" CALLED RT AND WITH NOTIFY DR. GREEN ON LFA AND PICC ON LOLA C/D/I NO EDEMA NOTED. ON TELE 27 DENIES ANY CHEST PAIN OR PRESSURE. ALL QUESTIONS AND CONCERNS ADDRESSED AT THIS TIME. BED IN LOWEST POSITION CALL LIGHT WITHIN REACH. WILL CONTINUE TO MONTIOR.
[2019-08-29 09:27] VITALS: BP 102/65
--- NOTE | 2019-08-29 09:38 | NUR ---
Dr Tapia at bedside rounding requested something for stuffy nose Dr Tapia stated "I'll take care of it" awaitng new orders
[2019-08-29 12:23] LABS: PLATELET COUNT 260 x10^3mcL (130-400); RED CELL DISTRIBUTION WIDTH 12.6 % (11.5-14.5)
--- NOTE | 2019-08-29 12:23 | NUR ---
Pt LYING IN BED 02 A LOT BETTER 97% REMAINS ON 15L OXYMIZER AND NRB 15L. ENCOURAGED Pt TO SIT IN CHAIR FOR LUNCH TOLERATED. Pt VERBALIZED UNDERSTANDING STATED HES BEEN EXCERSIZING IN BED. ALL NEEDS ATTENDED TO. SAFETY PRECAUTIONS IN PLACE. WILL CONTINUE TO MONTIOR.
[2019-08-29 12:48] LABS: BASOPHIL % 2.7 % (0-2)
[2019-08-29 12:59] LABS: C REACTIVE PROTEIN 3.1 mg/dL (<=0.9); CALCIUM 8.5 mg/dL (8.5-10.1); CARBON DIOXIDE 25.9 mmol/L (21-32); CHLORIDE SERUM 99 mmol/L (98-107); CREATININE SERUM 0.8 mg/dL (0.7-1.3); GFR1 > 60 mL/min; GLUCOSE SERUM 215 mg/dL (74-106); POTASSIUM SERUM 4.5 mmol/L (3.5-5.1); SODIUM SERUM 133 mmol/L (136-145)
[2019-08-29 13:00] VITALS: BP 110/75
--- NOTE | 2019-08-29 16:10 | NUR ---
Pt SIITING UP IN BED OXYMIZER TITRATED TO 9L AND NRB @15L Pt TOLERATING WELL ON 02 @ 96%. CHEST RISE EQUAL AND UNLABORED. HUNG 2ND OUT OF 4 BAG OF REMDESIVIR. ALL NEEDS ATTENDED TO AT THIS TIME. BED IN LOWEST POSITION CALL LIGHT WITHIN REACH. WILL CONTINUE TO MONITOR.
[2019-08-29 16:12] LABS: CHOLESTEROL/HDL RATIO 5.1
[2019-08-29 17:45] VITALS: BP 120/72
--- NOTE | 2019-08-29 18:42 | NUR ---
Pt LYING IN BED TOLERATED DIET WELL. ON 7L OXYMIZER AND 15L NRM 96% TOLERATING WELL DENIES ANY SOB. IV ON LFA AND PICC LINE ON RUE C/D/I. Pt DENIESA [place] SOB AT THIS TIME. NO S/S OF ANY RESPIRATORY DISTRESS. ALL NEEDS ATTENDED TO. SAFETY PRECAUTIONS IN PLACE. WILL ENDORSE CARE TO NIGHT RN
--- NOTE | 2019-08-29 19:25 | NUR ---
RECIEVED PT RESTING IN BED WITH NO ACUTE DISTRESS NOTED AT THIS TIME, ASSESSMENT PERFORMED AT THIS TIME, (SEE SHIFT ASSESSMENT), PT DENIES PAIN OR SOB AT THIS TIME, ON 15L NRB, AND 7 L OXYMIZER, RESPIRATIONS EVEN ADN UNLABORED, TELE 27 NSR. ALL PT NEEDS ATTENDED TO AT THIS TIME, SAFETY PRECAUTIONS IN PLACE, WILL CONTINUE TO MONITOR.
[2019-08-29 20:39] VITALS: BP 102/62
--- NOTE | 2019-08-30 00:55 | NUR ---
PT IS RESTING IN BED WITH NO ACUTE DITRESS NOTED AT THIS TIME, NO RESPIRATORY DISTRESS NOTED AT THIS TIME, SAFETY PRECAUTIONS IN PLACE WILL CONTINUE TO MONITOR.
[2019-08-30 05:01] VITALS: BP 95/56
--- NOTE | 2019-08-30 06:00 | NUR ---
PT OXYMIZER WEANED DOWN TO 4L, STILL ON NONREBREATHER AT 15 LPM, PT TOLERATING WELL, WILL CONTINUE TO MONITOR
--- NOTE | 2019-08-30 06:27 | NUR ---
PT RESTED THROUGH NIGHT WITH NO ACUTE DISTRESS, PT DENIED ANY SOB OR PAIN, PT SATURATIONS REMAINED WITHIN ACCEPTABLE RANGES, OXYMIZER WAS TITRATED DOWN TO 4LPM PT STILL ON NONREBREATHER AT 15LPM, AND TOLERATING WELL, ALL PT NEEDS ATTENDED TO THROUGH SHIFT, SAFETY PRECAUTIONS IN PLACE WILL CONTINUE TO MONITOR AND ENDORSE CARE TO ONCOMING RN.
[2019-08-30 07:12] LABS: BASOPHIL % 0.2 % (0-2); PLATELET COUNT 244 x10^3mcL (130-400); RED CELL DISTRIBUTION WIDTH 12.6 % (11.5-14.5)
[2019-08-30 07:27] LABS: CALCIUM 8.3 mg/dL (8.5-10.1); CHLORIDE SERUM 101 mmol/L (98-107); CREATININE SERUM 0.6 mg/dL (0.7-1.3); GFR1 > 60 mL/min; GLUCOSE SERUM 100 mg/dL (74-106); MAGNESIUM 2.2 mg/dL (1.8-2.4); PHOSPHOROUS 3.6 mg/dL (2.5-4.9); POTASSIUM SERUM 3.7 mmol/L (3.5-5.1); SODIUM SERUM 136 mmol/L (136-145)
--- NOTE | 2019-08-30 07:45 | NUR ---
RECEIVED PT. IN BED A/A/O X3. NO SOB, NO N/V NOTED. PT. DENIES ANY PAIN AT THIS TIME. PT. IS ON O2 AT 15L VIA NRB MASK AND O2 AT 3L VIA OXYMIZER. PICC LINE NOTED TO R UPPER ARM. PERIPHERAL IV SITE NOTED TO L FA. PT. IS ON DROPLET ISOLATION FOR (+) COVID-19. BED IN LOW POS., CALL LIGHT WITHIN REACH. SIDE RAILS UP X3.
[2019-08-30 09:17] VITALS: BP 94/55
--- NOTE | 2019-08-30 11:42 | NUR ---
Follow-up Nutrition Assessment: Nursing trigger: N/V/D > 3 days, Poor PO intake > 3 days Dx: VILLASENOR, cough, body ache, diarrhea, poor appetite, bilateral PNA, hypoxia, r/o COVID-19 PMHx: DM non-compliant PSHx: none noted Labs: (08/29) Na 136, K 3.7, Glu 100, BUN 15, Cr 0.6, H/H 15.7/46 Meds: Colace, Decadron, D50%, Humulin R, Lantus, Tylenol, Ventolin, Zofran Diet: CCHO diet PO intake since admission: (08/28) 100% x 3 meals. PO intakes much improved. With recent intake pattern, Pt consumes 2200 kcal and 131 gm protein which meets 100% of estimated needs. Pt consumes Glucerna BID which provided additional kcal/protein to meet upper-end of kcal and protein needs necessary for sepsis and COVID. Ht: 170.18cm/67in Wt: 86.183kg/190lbs BMI: 29.8 Bed scale: unknown IBW: 67.27kg/148lbs %IBW: 128.11% ABW: 72kg UBW: 190lbs per pt Age: 54 Food Allergies: NKFA per pt Edema: none noted Last BM: 08/21 Skin: skin intact Trevon: [address] (08/24): Pt was in isolation d/t possible COVID. RDN was able to contact pt with phone. Per pt, he had good appetite, and pt denied GI distress, chewing/swallowing difficulty, and recent wt changes. Pt reported taking MVI and protein powder at home, and he used to work out a lot. Per progress note (08/24) pt on day 4 of Decadron, azithromycin and Rocephin, COVID result still pending. Pt had average PO intake of 74% since admission. Diet provided approximately 1266kcal and 76g protein meeting 59% of estimated kcal needs and 88% of estimated protein needs. RDN Note (08/29): Pt continues on CCHO diet and Glucerna BID, consuming 100%. COVID results positive. Pt treated for PNA and COVID with course of remdesivir and plasma. PO intakes adequate to meet needs for viral infection. Pt educated by RDN during previous RDN visit. Pt denies questions/concerns regarding diet at this time. Estimated Nutritional Needs Based on adjusted ideal body weight (72 kg) Energy: 2888-0760 kcal/day (30-35 kcal/kg for sepsis) Protein: 86-108 g/day (1.2-1.5 g/kg for sepsis) Fluid: 4801-7134 mL/day (1 mL/kcal) Nutrition Diagnosis: 1. Inadequate energy intake r/t suboptimal PO intake a/e/b pt PO intake meeting 59% of estimated kcal needs. 2. Impaired nutrition utilization r/t endocrine dysfunction a/e/b pt admitted with dx of DMOOC and PMHx of DM. Intervention 1. Continue CCHO diet as tolerated. 2. Continue Glucerna BID to aid PO intake. It will provide additional 440kcal and 20g protein. Monitor/Evaluate Goal: PO intake at least 75% of estimated needs Monitor: PO intake, Labs, GI function, ONS intake, Body weight F/U in 3-5 days as moderate risk 09/03-09/05
--- NOTE | 2019-08-30 11:43 | NUR ---
Intervention 1. Continue CCHO diet as tolerated. 2. Continue Glucerna BID to aid PO intake. It will provide additional 440kcal and 20g protein.
[2019-08-30 14:03] VITALS: BP 104/62
[2019-08-30 15:06] LABS: BILIRUBIN DIRECT 0.1 mg/dL (0.0-0.2); BILIRUBIN TOTAL 0.42 mg/dL (0.20-1.00); TOTAL PROTEIN, SERUM 6.5 g/dL (6.4-8.2)
[2019-08-30 15:13] LABS: ALBUMIN 2.3 g/dL (3.4-5.0)
[2019-08-30 17:18] VITALS: BP 114/75
--- NOTE | 2019-08-30 18:23 | NUR ---
REMAINS IN STABLE CONDITION AT THIS TIME. WILL CONTINUE TO MONITOR.
--- NOTE | 2019-08-30 19:25 | NUR ---
PT RECEIVED PT RESTING IN BED WITH NO ACUTE DISTRESS NOTED AT THIS TIME, ASSESSMENT PERFORMED AT THIS TIME, (SEE SHIFT ASSESSMENT) PT IS A/OX4 NO COMPLAINTS OF VILLASENOR OR DIZZINESS AT THIS TIME, SPEAKS CLEAR ABLE TO MAKE NEEDS KNOWN, PT DENIES PAIN OR SOB, ON 3L OXYMIZER PLUS 15L NRB SAFETY PRECAUTIONS IN PLACE WILL CONTINUE TO MONITOR.
--- NOTE | 2019-08-30 20:45 | NUR ---
WEANED PT DOWN TO 2LP VIA OXYMIZER PLUS 15 NRB, TOLERATING WELL SATS 95% WILL CONTINUE TO MONITOR.
[2019-08-30 21:22] VITALS: BP 105/67; BP 20105/6
--- NOTE | 2019-08-30 23:00 | NUR ---
PT CALLED AND REQUESTED ORDER FOR OUTSIDE FOOD, INFORMED DR ROMAN, SAID COULD NOT PERMIT OUTSIDE FOOD AT THIS TIME.
--- NOTE | 2019-08-31 00:10 | NUR ---
PT WEANED OFF OXYMIZER STILL ON 15LPM NRB, WILL CONTINUE TO MONITOR, TOLERATING WELL
[2019-08-31 04:59] VITALS: BP 92/49
--- NOTE | 2019-08-31 06:05 | NUR ---
WEANED PT FROM 15LOM VIA NRB TO 13LPM, TOLERATING WELL, SATURATIONS AT 96%, WILL CONTINUE TO MONITOR
--- NOTE | 2019-08-31 06:26 | NUR ---
PT RESTED COMFORTABLY THROUGH THE NIGHT WITH NO ACUTE DISTRESS NOTED DURING CARE, PT DENIED PAIN OR SOB THROUGH THE NIGHT. PT WAS WEANED OFF OXYMIZER AND IS REMAINING ON THE NRB AT 13LPM, PT IS STABLE AND ALL NEEDS ATTENDED TO AT THIS TIME, SAFETY PRECAUTIONS IN PLACE WILL CONTINUE TO MONITOR AND ENDORSE CARE TO ONCOMING RN
[2019-08-31 07:18] LABS: BASOPHIL % 0.4 % (0-2); PLATELET COUNT 250 x10^3mcL (130-400); RED CELL DISTRIBUTION WIDTH 12.8 % (11.5-14.5)
[2019-08-31 07:20] LABS: CALCIUM 8.3 mg/dL (8.5-10.1); CARBON DIOXIDE 29.3 mmol/L (21-32); CHLORIDE SERUM 102 mmol/L (98-107); CREATININE SERUM 0.9 mg/dL (0.7-1.3); GFR1 > 60 mL/min; GLUCOSE SERUM 86 mg/dL (74-106); MAGNESIUM 2.3 mg/dL (1.8-2.4); PHOSPHOROUS 3.5 mg/dL (2.5-4.9); POTASSIUM SERUM 4.1 mmol/L (3.5-5.1); SODIUM SERUM 138 mmol/L (136-145)
--- NOTE | 2019-08-31 07:30 | NUR ---
RECEIVED PT IN BED A/A/OX4 DENIES VILLASENOR. RESP EVEN AND UNLABORED WITH DIMINISHED BS THROUGH OUT. ON 13L VIA NRB MASK WITH O2 SAT 96-97%, WILL CONT TO TITRATE DOWN TOLERATED. DENIES ANY SOB/CP/PRESSURE AT THIS TIME. NO EDEMA NOTED WITH IV SL TO LFA AND LOLA PICC. ABD SOFT, NONTENDER WITH ACTIVE BS X4. DENIES ANY N/V AT THIS TIME. UP TO BSC AND USES URINAL. DROPLET PRECAUTIONS MAINTAINED. CALL LIGHT IN REACH NEEDS ATTENDED TO.
[2019-08-31 07:38] LABS: BILIRUBIN DIRECT 0.13 mg/dL (0.0-0.2); BILIRUBIN TOTAL 0.5 mg/dL (0.20-1.00); TOTAL PROTEIN, SERUM 6.3 g/dL (6.4-8.2)
[2019-08-31 07:51] LABS: ALBUMIN 2.1 g/dL (3.4-5.0)
[2019-08-31 08:59] VITALS: BP 105/49
--- NOTE | 2019-08-31 11:20 | NUR ---
PT RESTING AT THIS TIME. DENIES ANY DISCOMFORT CALL LIGHT IN REACH NEEDS ATTENDED TO.
--- NOTE | 2019-08-31 12:30 | NUR ---
O2 SAT 97% TITRATED O2 TO 12L/MIN VIA NRB. CONT TO MONITOR.
[2019-08-31 12:50] VITALS: BP 116/66
--- NOTE | 2019-08-31 16:00 | NUR ---
IV TO LFA D/C'D PER PT'S REQUEST. DENIES ANY PAIN DISCOMFORT AT THIS TIME. CALL LIGHT IN REACH NEEDS ATTENDED TO.
[2019-08-31 17:24] VITALS: BP 99/68
--- NOTE | 2019-08-31 18:35 | NUR ---
PT RESTING AT THIS TIME. TITRATED O2 TO 12L VIA NRBMASK PT TOLERATED WELL. REPORTS IMPROVEMENT WITH SOB AND ACTIVITY TOLERANCE. CALL LIGHT IN REACH NEEDS ATTENDED TO.
[2019-08-31 21:07] VITALS: BP 98/60
--- NOTE | 2019-08-31 23:07 | NUR ---
PT IN BED NO RESP DISTRESS NOTED ON 15L NRB , TELE NSR ,, PICC LINE PATENT , CALL LIGHT WITHIN PT'S REACH , WILL CON'T TO MONITOR AND ASSIST PT WITH CARE .
[2019-09-01 05:50] VITALS: BP 98/51
[2019-09-01 07:12] LABS: BASOPHIL % 1.1 % (0-2); PLATELET COUNT 245 x10^3mcL (130-400); RED CELL DISTRIBUTION WIDTH 12.9 % (11.5-14.5)
--- NOTE | 2019-09-01 07:35 | NUR ---
RECEIVED PT IN BED A/A/OX4 DENIES VILLASENOR. RESP EVEN AND UNLABORED WITH DIMINISHED BS THROUGHT OUT. ON 15L VIA NRB, TITRATED DOWN TO 12L. O2 SAT 93%. NOTED WITH OCC COUGH WORSENING WHILE SPEAKING OR AFTER ACTIVITY. DENIES ANY CP/PRESSURE AT THIS TIME. NO EDEMA NOTED WITH PICC LINE TO LOLA. ABD SOFT, NONTENDER WITH ACTIVE BS X4. DENIES ANY N/V AT THIS TIME. VOIDING FREELY. MOD GEN WEAKNESS. AMBULATORY ABLE TO REPOSITION IN BED AND TRANSFER TO [facility]. DROPLET PRECAUTIONS MAINTAINED. CALL LIGHT IN REACH NEEDS ATTENDED TO.
[2019-09-01 07:39] LABS: ALKALINE PHOSPHATASE 86 U/L (46-116); ALT/SGPT 15 U/L (16-63); AST/SGOT 16 U/L (15-37); BILIRUBIN DIRECT 0.13 mg/dL (0.0-0.2); BILIRUBIN TOTAL 0.39 mg/dL (0.20-1.00); CALCIUM 8.2 mg/dL (8.5-10.1); CARBON DIOXIDE 28.4 mmol/L (21-32); CHLORIDE SERUM 104 mmol/L (98-107); CREATININE SERUM 0.7 mg/dL (0.7-1.3); GFR1 > 60 mL/min; GLUCOSE SERUM 77 mg/dL (74-106); MAGNESIUM 2.2 mg/dL (1.8-2.4); PHOSPHOROUS 4.3 mg/dL (2.5-4.9); POTASSIUM SERUM 3.7 mmol/L (3.5-5.1); SODIUM SERUM 140 mmol/L (136-145)
[2019-09-01 07:40] LABS: TOTAL PROTEIN, SERUM 5.9 g/dL (6.4-8.2)
[2019-09-01 08:27] VITALS: BP 107/62
[2019-09-01 12:06] VITALS: BP 111/60
--- NOTE | 2019-09-01 13:21 | NUR ---
SPOKE WITH PT'S FAMILY AND PROVIDED UPDATE ON CONDITION ASREQUESTED BY PATIENT.
[2019-09-01 16:19] VITALS: BP 100/54
--- NOTE | 2019-09-01 18:30 | NUR ---
FOUND PT WALKING BACK AND FORTH ON ROOM STATED HE WANTED TO EXERCISE. HAS BEEN WALKING BACK AND FORTH TO BATHROOM WITH O2 EXTENSION. PT SATING 92% AFTER A MIN OF REST AND WHEN TALKING DESAT BACK TO 88%. NO CHANGES TO O2 AT THIS TIME. REMAINS ON 12L VIA NRB. ENCOURAGE TO REST IN BETWEEN ACTIVITY TO RECOVER. CALL LIGHT IN REACH NEEDS ATTENDED TO.
--- NOTE | 2019-09-01 20:00 | NUR ---
PATIENT SITTING ON THE CHAIR. BREATH SOUNDS DIMINISHED, RESPIRATION EVEN AND UNLABORED, ON NONREBREATHER MASK AT 12L. ON CONTACT AND DROPLET PRECAUTION. ONGOING 0.9% NS AT TKO ON THE R UPPER ARM PICC LINE. LBM 08/31. VOIDING FREELY, USES URINAL. AMBULATORY. SKIN DRY AND INTACT. DENIES PAIN AT THIS TIME. ON TELE #27. WILL CONTINUE TO MONITOR.
[2019-09-01 21:27] VITALS: BP 112/61
[2019-09-02 06:04] VITALS: BP 108/70
--- NOTE | 2019-09-02 06:12 | NUR ---
PATIENT RESTING IN BED. GETS A LITTLE SOB DURING ACTIVITY, ON NONREBREATHER MASK AT 12L. ON CONTACT AND DROPLET PRECAUTION. PICC LINE TO LOLA PATENT AND INTACT. ASSISTED WITH NEEDS. SAFETY OBSERVED. PLACED BED IN THE LOWEST POSITION. PLACED CALL LIGHT WITHIN REACH AT ALL TIMES.
--- NOTE | 2019-09-02 08:00 | NUR ---
AAO TIMES 4. TELE # [address] LUNGS DIMINISHED BILATERALLY. O2 SAT ON NRB AT 15 L, 87-88%. BS'S ACTIVE TIMES 4. BRANCH STRONG. IV SITE CDI. COOPERATIVE. PERIPHERAL PULSES PALPABLE, NO EDEMA. ON HEPARIN SQ.
[2019-09-02 08:56] VITALS: BP 102/63
[2019-09-02 09:01] LABS: BASOPHIL % 0.3 % (0-2); PLATELET COUNT 252 x10^3mcL (130-400); RED CELL DISTRIBUTION WIDTH 13.1 % (11.5-14.5)
[2019-09-02 09:11] LABS: CALCIUM 8.7 mg/dL (8.5-10.1); CARBON DIOXIDE 29.7 mmol/L (21-32); CHLORIDE SERUM 106 mmol/L (98-107); CREATININE SERUM 0.7 mg/dL (0.7-1.3); GFR1 > 60 mL/min; GLUCOSE SERUM 83 mg/dL (74-106); MAGNESIUM 2.3 mg/dL (1.8-2.4); PHOSPHOROUS 3.8 mg/dL (2.5-4.9); POTASSIUM SERUM 4.1 mmol/L (3.5-5.1); SODIUM SERUM 142 mmol/L (136-145)
[2019-09-02 12:17] VITALS: BP 103/51
--- NOTE | 2019-09-02 13:21 | NUR ---
I DID PATIENT TEACHING WITH REGARDS TO LAYING PRONE ON HIS STOMACH DURING THE DAY SOMETIMES AND ALSO AT NIGHT, IT HELPS COVID LUNGS GET BETTER FAST. HE SAID "OK".
[2019-09-02 16:31] VITALS: BP 98/67
--- NOTE | 2019-09-02 17:12 | NUR ---
AT 1026, HER BP WAS 95/52, I GAVE A BOLUS OF NS [address] DIAZ. AT 1630, HER BP WAS 86/45, I CALLED DR GALLO, HE ORDERED ANOTHER 250 ML NS, I STARTED AT 1657.
--- NOTE | 2019-09-02 17:48 | NUR ---
AAO TIMES 4. TELE # [address] O2 15L NRB MASK. O2 SAT 95%. PLEASANT, COOPERATIVE. HE STATES HE IS USING HIS INCENTIVE SPIROMETER. IV SITE CDI. SOB WITH EXERTION.
--- NOTE | 2019-09-02 20:00 | NUR ---
PT A/A/O X4. DENIES DIZZINESS AND HEADACHE. BREATH SOUNDS DIMINISHED CHIKI LUNGS. BREATHING EVEN AND UNLABORED ON 15L NON REBREATHER MASK, SPO2 95%. DENIES CHEST PAIN AND PRESSURE. BOWEL SOUNDS ACTIVE. NO C/O N/V AND ABD PAIN. IV INTACT ON THE LOLA PICC LINE. MADE PT COMFORTABLE. PLACED CALL LIGHT WITH IN REACH. WILL CONTINUE TO MONITOR.
[2019-09-02 21:04] VITALS: BP 100/60
--- NOTE | 2019-09-03 00:24 | NUR ---
PT RESTING WITH EYES CLOSED. NO DISTRESS AND DISCOMFORT NOTED. WILL CONTINUE TO MONITOR.
--- NOTE | 2019-09-03 07:05 | NUR ---
RECEIVED PT FROM NIGHT RN. AAOX4, SPEECH CLEAR. DENIES VILLASENOR/DIZZINESS. RES E/U, O2 SAT 92% ON 15 LPM NRB. DENIES SOB. TELE MONITOR 27 SHOWING SR, HR IN 90'S. DENIES CP/PRESSURE. PERIPHERAL PULSES PALPABLE W NO EDEMA NOTED. ABDOMEN SOFT. DENIES N/V. NO GI/ COMPLAINT. PICC TO [facility], PATENT AND CDI. BED IN LOWEST POSITION, CALL LIGHT WITHIN REACH, WILL CONTINUE TO MONITOR.
--- NOTE | 2019-09-03 07:05 | NUR ---
PT QUIET AND RESTING. NO SIGNIFICANT CHANGES NOTED. MADE PT COMFORTABLE. WILL ENDORSE TO THE AM NURSE ACCORDINGLY.
[2019-09-03 08:15] LABS: CALCIUM 8.6 mg/dL (8.5-10.1); CHLORIDE SERUM 102 mmol/L (98-107); CREATININE SERUM 0.7 mg/dL (0.7-1.3); GFR1 > 60 mL/min; GLUCOSE SERUM 127 mg/dL (74-106); MAGNESIUM 2.3 mg/dL (1.8-2.4); PHOSPHOROUS 3.4 mg/dL (2.5-4.9); POTASSIUM SERUM 3.7 mmol/L (3.5-5.1); SODIUM SERUM 138 mmol/L (136-145)
[2019-09-03 09:14] VITALS: BP 109/71
--- NOTE | 2019-09-03 10:30 | NUR ---
PT RESTING IN BED IN PRONED POSITION. DENIES SOB. O2 SAT 99% ON 15 LPM NRB. DECREASED O2 TO 14LPM, O2 SAT 95%. EDUCATED PT HOW TO USE INCENTIVE SPIROMETER. PT ABLE TO DEMONSTRATE UNDERSTANDING
[2019-09-03 10:34] LABS: BASOPHIL % 0.8 % (0-2); PLATELET COUNT 247 x10^3mcL (130-400); RED CELL DISTRIBUTION WIDTH 12.2 % (11.5-14.5)
[2019-09-03 13:35] VITALS: BP 98/60
[2019-09-03 16:50] VITALS: BP 101/62
--- NOTE | 2019-09-03 19:06 | NUR ---
PT SITTING ON CHAIR WITHOUT APPARENT DISTRESS. RES E/U, DENIES SOB. O2 SAT 92% ON 10 LPM OXYMIZER. WILL ENDORSE CARE TO NEXT SHIFT
--- NOTE | 2019-09-03 20:30 | NUR ---
PT RECIEVED AAO REG RESP ON 10 L OXYIMIZER SAT 93% NO SOB HOB V/S STABLE,ABDO IS SOFT WITH ACTIVE BOWEL SOUNDS,PT WITH BRP,PT ON TELE MONITOR AND IN NSR NO ECTOPY OR CHEST PAIN AT THIS TIME.PICC LINE TO THE LOLA SITE INTACT,BED IN THE LOW POSITION AND LOCKED,CALL LIGHT EASY REACHED AND WILL CONTINUE TO MONITOR.
[2019-09-03 21:36] VITALS: BP 93/59
--- NOTE | 2019-09-04 00:49 | NUR ---
PT RESTING SOUNDLY AT THIS TIME,WILL CONTINUE TO MONITOR.
[2019-09-04 06:21] VITALS: BP 97/62
--- NOTE | 2019-09-04 06:38 | NUR ---
PT HAD ARESTING NIGHT NO CHANGE AT THIS TIME,PT ON 10 L OXYMIZER WITH SAT 93%,CALL LIGHT EASY REACHED AND WILL CONTINUE TO MONITOR.
[2019-09-04 07:11] LABS: BASOPHIL % 0.3 % (0-2); PLATELET COUNT 229 x10^3mcL (130-400)
--- NOTE | 2019-09-04 07:25 | NUR ---
SEEN AOX4, NOT IN DISTRESS, TELE 27, NSR, PALPBLE PULSES, NO EDEMA, DIMINISHED BLF, 02 SAT 90%, OXYMIZER 10LPM, +BS, VOIDS WITH NO DYSURIA, NO WEAKNESS, FULL ROM, SKIN DRY AND INTACT, NO PAIN AT THIS TIME, IV INTACT AND PATENT, NO REDNESS OR SWELLING, CALL LIGHT WITHIN REACH, BED AT LOWEST POSITION, SIDE RAILS UP.
[2019-09-04 07:49] LABS: CALCIUM 8.7 mg/dL (8.5-10.1); CARBON DIOXIDE 28.3 mmol/L (21-32); CHLORIDE SERUM 102 mmol/L (98-107); CREATININE SERUM 0.8 mg/dL (0.7-1.3); GFR1 > 60 mL/min; GLUCOSE SERUM 128 mg/dL (74-106); MAGNESIUM 2.3 mg/dL (1.8-2.4); POTASSIUM SERUM 4.4 mmol/L (3.5-5.1); SODIUM SERUM 138 mmol/L (136-145)
[2019-09-04 09:24] VITALS: BP 88/55
--- NOTE | 2019-09-04 09:54 | NUR ---
MEDICATIONS GIVEN PER EMAR
--- NOTE | 2019-09-04 12:58 | NUR ---
ACCUCHECK DONE WITH CBG 117. NO INSULIN REQURIED.
[2019-09-04 14:02] VITALS: BP 95/66
[2019-09-04 14:47] VITALS: Ht 170.2 cm; Wt 86.2 kg
[2019-09-04 16:24] VITALS: BP 96/65
--- NOTE | 2019-09-04 16:34 | NUR ---
ACCUCHECK DONE WITH CBG 196.
--- NOTE | 2019-09-04 18:42 | NUR ---
DR KIMBLE MADE AWARE OF ORDERS FOR PICC LINE REMOVAL.
--- NOTE | 2019-09-04 18:55 | NUR ---
PICC LINE REMOVED BY DR KIMBLE.
--- NOTE | 2019-09-04 20:00 | NUR ---
PT RECIEVED AAO REG RESP NO SOBN V/S STABLE PT ON 10 L OXYMIZER SAT 94%,ABDO IS SOFT WITH ACTIVE BOWEL SOUNDS,BED IN THE LOW POSITION AND LOCKED AND WILL CONTINUE TO MONITOR.
[2019-09-04 21:46] VITALS: BP 106/65
--- NOTE | 2019-09-05 01:03 | NUR ---
PT RESTING AT THIS TIME,WILL CONTINUE TO MONITOR.
--- NOTE | 2019-09-05 06:23 | NUR ---
QXYMIZER WAS REDUCE TO 5L PERVIOUSLY WAS ON 10L SAT 91%,PT HAD A RESTING NIGHT NO CHANGE AT THIS TIME,WILL CONTINUE TO MONITOR.
[2019-09-05 06:59] LABS: CALCIUM 8.4 mg/dL (8.5-10.1); CARBON DIOXIDE 26.4 mmol/L (21-32); CHLORIDE SERUM 99 mmol/L (98-107); CREATININE SERUM 0.7 mg/dL (0.7-1.3); GFR1 > 60 mL/min; GLUCOSE SERUM 123 mg/dL (74-106); MAGNESIUM 2.2 mg/dL (1.8-2.4); PHOSPHOROUS 3.7 mg/dL (2.5-4.9); POTASSIUM SERUM 3.9 mmol/L (3.5-5.1); SODIUM SERUM 141 mmol/L (136-145)
[2019-09-05 07:01] VITALS: BP 92/61
--- NOTE | 2019-09-05 07:20 | NUR ---
RECEIVED PATIENT AOX4, NOT IN DISTRESS, TELE 27, NSR, PALPABLE PULSES, NO EDEMA, 5LPM OXYMIZER , O2 SAT 91%, +BS, VOIDS WITH NO DYSURIA, NO WEAKNESS, SKIN DRY AND INTACT, NO PAIN AT THIS TIME, NO IV ACCESS, CALL LIGHT WITHIN REACH, BED AT LOWEST POSITION, SIDE RAILS UP.
--- NOTE | 2019-09-05 08:00 | NUR ---
IV INSERTED AT RH. 22G. NO REDNESS OR SWELLING.
[2019-09-05 08:01] LABS: BASOPHIL % 0.5 % (0-2); PLATELET COUNT 233 x10^3mcL (130-400); RED CELL DISTRIBUTION WIDTH 12.8 % (11.5-14.5)
--- NOTE | 2019-09-05 08:41 | NUR ---
MEDICATIONS GIVEN PER EMAR.
--- NOTE | 2019-09-05 08:41 | NUR ---
MEDICATIONS GIVEN PER EMAR.
[2019-09-05 09:56] VITALS: BP 99/58
--- NOTE | 2019-09-05 11:59 | NUR ---
ACCUCHECK DONE WITH CBG 150. NO INSULIN REQUIRED
[2019-09-05 12:29] VITALS: BP 05/61; BP 95/61
[2019-09-05 17:25] VITALS: BP 91/61
--- NOTE | 2019-09-05 19:19 | NUR ---
RECIVED PT FROM AM NURSE. CALLED INTO PTS ROOM. PT HAS NO NEEDS AT THIS TIME. PT HAS CALL LIGHT IN REACH, WILL FOLLOW UP WITH PM ASSESSMENT.
[2019-09-05 19:56] VITALS: BP 94/59
--- NOTE | 2019-09-05 21:44 | NUR ---
ADMINISTERED MEDS TO PT. PT TOLERATED WELL. PT ON 5L OXM, DENIES SOB AND DIFFICULTY BREATHING. PTS GLUCOSE WAS CHECKED, 124 NO COVERAGE NEEDED. PT HAS CALL LIGHT IN REACH, ENCOURAGED TO USE IF ASSISTANCE IS NEEDED. WILL CONTINUE TO MONITOR.
--- NOTE | 2019-09-06 04:32 | NUR ---
PT SATTING AT 99-100% ON 5L OXYMIZER. TITRATED O2 DOWN TO 3L. PT NOW SATTING 95-97%. PT DENIES SOB OR DIFFICULTY BREATHING. PT ENCOURAGED TO USE CALL LIGHT IF FEELING LIKE HE NEEDS MORE OXYGEN. WILL CONTINUE TO MONITOR.
[2019-09-06 05:51] VITALS: BP 105/69
--- NOTE | 2019-09-06 06:18 | NUR ---
PT SLEPT IN INTERVALS THROUGHOUT THE NIGHT. PT REMAINED STABLE, NO SIGNS OF ACUTE DISTRESS. PT ON 3L OXYMIZER, SATTING AT 98%. PT DENIES SOB, WILL SUGGEST FURTHER TITRATION TO AM NURSE. PT INSTRUCTED TO CONTINUE PRONING AND TO ALERT NURSE IF BECOMING SOB. CALL LIGHT IN REACH, ENCOURAGED TO USE IF NEEDING ASSISTANCE. WILL ENDORSE CARE TO AM NURSE.
[2019-09-06 06:22] LABS: BASOPHIL % 0.4 % (0-2); PLATELET COUNT 197 x10^3mcL (130-400); RED CELL DISTRIBUTION WIDTH 13.1 % (11.5-14.5)
[2019-09-06 06:48] LABS: CALCIUM 8.5 mg/dL (8.5-10.1); CARBON DIOXIDE 29.3 mmol/L (21-32); CHLORIDE SERUM 101 mmol/L (98-107); CREATININE SERUM 0.9 mg/dL (0.7-1.3); GFR1 > 60 mL/min; GLUCOSE SERUM 200 mg/dL (74-106); MAGNESIUM 2.1 mg/dL (1.8-2.4); PHOSPHOROUS 3.5 mg/dL (2.5-4.9); SODIUM SERUM 138 mmol/L (136-145)
--- NOTE | 2019-09-06 07:20 | NUR ---
SEEN AOX4, NOT IN DISTRESS, TELE 27, NSR, PALPABLE PULSES, NO EDEMA, DIMINISHED BLF, 3LPM OXYMIZER, 97% O2 SAT, CHANGED TO O2 AT 3LPM VIA NC, O2 SAT 95%, NO SOB, +BS, VOIDS WITH NO DYSURIA, NO WEAKNESS,SKIN DRY AND INTACT, NO PAIN AT THIS TIME, IV INTACT AND PATENT, RH, NO REDNESS OR SWELLING, CALL LIGHT WITHIN REACH,BED AT LOWEST POSITION, SIDE RAILS UP.
[2019-09-06 08:53] VITALS: BP 99/72
--- NOTE | 2019-09-06 09:43 | NUR ---
MEDICATIONS GIVEN PER EMAR. MITCHELL REFUSED
--- NOTE | 2019-09-06 11:31 | NUR ---
ACCUCHECK DONE WITH CBG 215. REG INSULIN 6 UNITS SQ GIVEN.
--- NOTE | 2019-09-06 11:44 | NUR ---
DR COLE MADE AWARE PATIENT ON 3LPM O2 VIA NC. PER DR COLE, PATIENT WILL LIKELY GO HOME TOMORROW WITH HOME O2
--- NOTE | 2019-09-06 12:39 | NUR ---
TITRATED O2 TO 2LPM VIA NC. O2 SAT 97%
[2019-09-06 13:10] VITALS: BP 101/74
[2019-09-06 16:30] VITALS: BP 106/73
--- NOTE | 2019-09-06 16:51 | NUR ---
CBG 113. NO INSULIN REQUIRED
--- NOTE | 2019-09-06 19:19 | NUR ---
RECIEVED PT FROM AM NURSE. CALLED INTO PTS ROOM. PT HAS NO NEEDS AT THIS TIME. PT ON 2L NC, O2 SATURATION 97%. CALL LIGHT IN REACH, ENCOURAGED TO USE IF ASSISTANCE IS NEEDED. WILL FOLLOW UP WITH PM ASSESSMENT.
[2019-09-06 21:42] VITALS: BP 122/62
[2019-09-06 21:44] VITALS: BP 114/64
--- NOTE | 2019-09-06 22:19 | NUR ---
PT TOLERATED MEDS WELL. GLUCOSE CHECK WAS 129, NO COVERAGE NEEDED. PT HAS NO OTHER NEEDS AT THIS TIME. CALL LIGHT IN REACH WILL CONTINUE TO MONITOR.
--- NOTE | 2019-09-07 04:34 | NUR ---
PT SLEEPING, STABLE. PT SATTING 98% ON 2L NC. CALL LIGHT IN REACH, WILL CONTINUE TO MONITOR.
[2019-09-07 05:59] VITALS: BP 97/67
--- NOTE | 2019-09-07 06:12 | NUR ---
PT SLEPT WELL THROUGHOUT THE NIGHT. PT STABLE, NO EPISODES OF ACUTE DISTRESS. PT SATTING 97% ON 2L NC, WILL ENDORSE WEANING OF O2 TO AM RN. PT DENIES SOB AND DIFFICULTY BREATHING. ALL NEEDS WERE MET DURING THIS SHIFT, CALL LIGHT IN REACH. WILL ENDORSE CARE TO AM RN.
--- NOTE | 2019-09-07 07:30 | NUR ---
Pt SITTING UP IN BED A&O X4 RECEIVED ON 2L NC Pt 91% ON RA BUT DESATURATES TO 88% ON EXERCTION. Pt DENIES ANY SOB OR PAIN AT THIS TIME. ON TELE 27 LUNGS DIMINSHED BILAT. Pt AMBULATORY STATED "I FEEL A LOT BETTER I CAN TAKE DEEP BREATHS" IV ON RIGHT HAND PATENT AND INTACT. ALL NEEDS ATTENDED TO. BED IN LOWEST POSITION CALL LIGHT WITHIN REACH. WILL CONTINUE TO MONITOR.
[2019-09-07 08:00] VITALS: BP 92/68
--- NOTE | 2019-09-07 11:45 | NUR ---
DR HALL UPDATING Pt ON POC
[2019-09-07 12:00] VITALS: BP 111/60
--- NOTE | 2019-09-07 15:28 | NUR ---
Follow-up Nutrition Assessment: Agusto Cordero 226B Dx: VILLASENOR, cough, body ache, diarrhea, poor appetite, bilateral PNA, hypoxia, r/o COVID-19 PMHx: DM non-compliant PSHx: none noted Labs: (09/06/19): Glu: 200H, (08/21/19) HgbA1C: 10.2%, Ferritin: 3811, Glu: 201, C-RP: 3.1H, Alb: 2.0, T Meds: Colace bid, dextrose iv, Humulin, lantus, heparin Diet/po intake: po intakes good since admission at mostly 80-100%, drinks Glucerna bid at breakfast and dinner Weights: unable to visit patient (COVID) Trevon: 20, skin intact Edema: no edema noted GI: last BM on 09/05, denies n/v/d/c RD note: unable to reach patient via phone, spoke with RN who said pt is eating well and does drink his glucerna, no longer getting remdesivir, per huddles waiting for O2 to be delivered to home so patient can be discharged Past RDN Note (08/29): Pt continues on CCHO diet and Glucerna BID, consuming 100%. COVID results positive. Pt treated for PNA and COVID with course of remdesivir and plasma. PO intakes adequate to meet needs for viral infection. Pt educated by RDN during previous RDN visit. Pt denies questions/concerns regarding diet at this time. Estimated Nutritional Needs Based on adjusted ideal body weight (72 kg) Energy: 1066-9416 kcal/day (30-35 kcal/kg for sepsis) Protein: 86-108 g/day (1.2-1.5 g/kg for sepsis) Fluid: 0110-2331 mL/day (1 mL/kcal) Nutrition Diagnosis: 1. Inadequate energy intake r/t suboptimal PO intake a/e/b pt PO intake meeting 59% of estimated kcal needs. (resolved) 2. Impaired nutrition utilization r/t endocrine dysfunction a/e/b pt admitted with dx of DMOOC and PMHx of DM. (ongoing) Intervention 1. Continue CCHO diet as tolerated. 2. Continue Glucerna BID to aid PO intake. It will provide additional 440kcal and 20g protein. Monitor/Evaluate Goal: PO intake at least 75% of estimated needs Monitor: PO intake, Labs, GI function, ONS intake, Body weight F/U in 3-5 days as moderate risk 09/03-09/05
[2019-09-07 15:59] VITALS: BP 111/60
--- NOTE | 2019-09-07 16:25 | NUR ---
DR KIMBLE AT BEDSIDE EXPLAINING THE RISKDS OF LEAVING AMA Pt VERBALIZED UNDERSTANDING AND STILL REQUESTO TO LEAVE AMA. PAPER SIGNED ALL RISKS UNDERSTOOD. TELE MOITOR REMOVED AND GIVEN TO MACHINE MAINTENANCE TECHNICIAN. Pt REMOVED HIS OWN IV AND APPLIED DRESSING. NO BLEEDING OR EDEMA NOTED. ESCORTED Pt TO PARKING LOT. SOB NOTED Pt STILL REFUSED TO STAY
== END 2019-09-07 16:26 | disposition left against medical advice (07) | DRG 871 ==
LOC: ED 13:52 → DU 16:31
PROVIDERS: Emergency Medicine; Internal Medicine; Internal Medicine Infectious Disease; ADMIT Family Medicine; ATTEND Family Medicine
PROC: 02HV33Z Insertion of Infusion Device into Superior Vena Cava, Percutaneous Approach (ICD-10-PCS; principal; 2019-08-27)
PROC: B548ZZA Ultrasonography of Superior Vena Cava, Guidance (ICD-10-PCS; 2019-08-27)
DX: A41.89 Other specified sepsis (principal); U07.1 COVID-19; J12.89 Other viral pneumonia; J96.01 Acute respiratory failure with hypoxia; D61.818 Other pancytopenia; G72.81 Critical illness myopathy; E11.65 Type 2 diabetes mellitus with hyperglycemia; E83.51 Hypocalcemia; Z53.29 Procedure and treatment not carried out because of patient's decision for other reasons
CPT/HCPCS: 36600; 82962; 83880; 85378; 87804; G0378; J0456; J0696; J1100; J1644; J1815; J2405; J3535; J7030; J7050; J7060; Q0092; U0003-CS